=== PATIENT | female | born 1940 | race Two or more races ===

== ENCOUNTER 2021-06-29 11:54 | Emergency (ER) | payer OTHER ==
[~2021-06-29] VITALS: Ht 149.9 cm; Wt 56.7 kg
[2021-06-29] MEDS ORDERED: METFORMIN HCL1000 M2 (12:17)
[2021-06-29] MEDS ORDERED: UNITHROID75 MCG (12:17)
[2021-06-29] MEDS ORDERED: LIPITOR20 MG (12:18)
== END 2021-06-29 15:13 | disposition home or self-care (01) ==
LOC: ER 11:54
DX: E11.65 Type 2 diabetes mellitus with hyperglycemia (principal)

== ENCOUNTER 2021-11-13 22:04 | Emergency (ER) | payer OTHER ==
[~2021-11-13] VITALS: Ht 152.4 cm; Wt 54.4 kg
[~2021-11-13 22:04] MED LIST: LIPITOR20 MG; METFORMIN HCL1000 M2; UNITHROID75 MCG
== END 2021-11-14 01:20 | disposition home or self-care (01) ==
LOC: ER 22:04
DX: B37.3 Candidiasis of vulva and vagina (principal); N39.0 Urinary tract infection, site not specified; E11.65 Type 2 diabetes mellitus with hyperglycemia; Z79.4 Long term (current) use of insulin